=== PATIENT | female | born 1980 ===

== ENCOUNTER 2023-12-13 05:42 | Day surgery (SDC) | payer OTHER | END 2023-12-13 11:05 | disposition home or self-care (01) | LOC: AMB-ENDOS 05:42 | PROVIDERS: ATTEND Colon & Rectal Surgery | DX: K52.9 Noninfective gastroenteritis and colitis, unspecified (principal); K64.2 Third degree hemorrhoids; Z20.822 Contact with and (suspected) exposure to COVID-19 ==